=== PATIENT | female | born 1990 | race Hispanic/Latino ===

== ENCOUNTER 2024-11-17 22:00 | Emergency (ER) | payer SELFPAY, OTHER ==
--- OUTSIDE RECORDS SUMMARY | 2024-11-17 22:03 | XMS REPORT | Continuity of Care Document ---
Author Name Unknown Address [address] [facility] [address] [place] [address] [facility] thconnect Address [address] [facility] [address] [place] [address] Care Team Providers Care Data Entry Technician Name Role Phone Unavailable Unavailable Unavailable Encounters Start Date/Time End Date/Time Encounter Type Admission Type Attending Clinicians Care Facility Care Department Encounter ID Source 2024-08-29 14:38:48 2024-08-29 14:38:48 Outpatient [place] [id number] 2024-08-08 13:47:35 2024-08-08 13:47:35 Outpatient [facility] [id number] 2023-03-05 13:51:37 2023-03-05 13:51:37 Outpatient [facility] [id number] Motta 2023-03-04 17:10:29 2023-03-04 17:10:29 Outpatient [facility] [id number] Jul[address] Motta Results Test Description Test Time Test Comments Results Result Co mments Source TSH, THIRD [id number] 06:34:41* Test Item Value Reference Range Interpretation Comme nts TSH, THIRD GENERATION (test code = 2821) 0.642 UIU/ML 0.400-4.100 [id number] 06:34:41* Test Item Value Reference Range Interpretation Comme nts PROLACTIN (test code = 2800) 7.1 NG/ML 5.0-37.0 NOTE: Methodolog y is Vikki Parish Electrochemiluminescence Immunoassay (ECLIA). Values obtained with different assays/manufacturers cannot be used interchangeably. Results should not be used as sole basis to establish the presence or absence of malignancy. CBC W/AUTO DIFF WITH [id number] 02:46:19* Test Item Value Reference Range Interpretation Comme nts WBC (test code = 1001) 9.9 K/UL 3.5-11.0 RBC (test code = 1002) 4.70 M/UL 3.80-5.40 HEMOGLOBIN (test code = 1003) 14.2 G/DL 11.5-15.5 HEMATOCRIT (test code = 1004) 41.3 % 34.0-45.0 MCV (test code = 1005) 87.9 fL 80.0-99.0 MCH (test code = 1006) 30.2 PG 25.0-33.0 MCHC (test code = 1007) 34.4 G/DL 31.0-36.0 RDW (test code = 1038) 12.8 % 11.5-15.0 NEUTROPHILS (test code = 1008) 66.9 % LYMPHOCYTES (test code = 1010) 25.4 % MONOCYTES (test code = 1011) 4.0 % EOSINOPHILS (test code = 1012) 2.9 % BASOPHILS (test code = 1013) 0.6 % IMMATURE GRANULOCYTES (test code = 1036) 0.2 % NUCLEATED RBCS (test code = 1065) 0.0 /100 WBC'S See_Comment [Automated message] The system which generated this result transmitted reference range: 0.0. The reference range was not used to interpret this result as normal/abnormal. PLATELET COUNT (test code = 1015) 334 K/UL 130-400 ABSOLUTE NEUTROPHILS (test code = 1066) 6.59 K/UL 1.50-7.50 ABSOLUTE LYMPHOCYTES (test code = 1067) 2.50 K/UL 1.00-4.00 ABSOLUTE MONOCYTES (test code = 1068) 0.39 K/UL 0.20-1.00 ABSOLUTE EOSINOPHILS (test code = 1040) 0.29 K/UL 0.00-0.50 ABSOLUTE BASOPHILS (test code = 1069) 0.06 K/UL 0.00-0.20 ABS IMMATURE GRANULOCYTES (test code = 1020) 0.02 K/UL 0.00-0.10 ABS NUCLEATED RBCS (test code = 16072) 0.00 K/UL 0.00-0.11 UNLESS OTHER KEITH INDICATED, ALL TESTING PERFORMED AT [facility] [address] [place] [id number] [facility]NA[employer] SPECIALIST: TARAH KAPOOR M.D. [place] NUMBER [id number] [facility] [place]. [id number]
[2024-11-18] MEDS ORDERED: PROMETHAZINE 25 MG TABLET ONE (00:04)
[2024-11-18] MEDS ORDERED: IBUPROFEN 400 MG TAB ONE (00:05)
[2024-11-18] MEDS ORDERED: TRAMADOL HCL 50 MG TAB ONE (00:05)
[2024-11-18] MEDS ORDERED: methocarbamoL 750 MG TAB ONE (00:06)
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
[2024-11-18 23:00] VITALS: TEMP 97.2
[2024-11-18 23:01] VITALS: BP 131/67; O2SAT 97
== END 2024-11-18 01:43 | disposition home or self-care (01) ==
LOC: ER 22:00
DX: S93.401A Sprain of unspecified ligament of right ankle, initial encounter (principal); M54.50 Low back pain, unspecified; S34.109A Unspecified injury to unspecified level of lumbar spinal cord, initial encounter
CPT/HCPCS: 70450; 71250; 72125; 74176; 99284; Q0169